=== PATIENT | female | born 1995 | race Two or more races ===

== ENCOUNTER 2023-07-26 15:41 | Emergency (ER) | payer OTHER ==
[~2023-07-26] VITALS: Ht 327.7 cm; Wt 58.1 kg
[2023-07-26 17:16] LABS: HEMATOCRIT 40.6 % (36.0-45.00); HEMOGLOBIN 14.1 g/dL (12.0-15.00); MEAN CELL VOLUME 93.1 fL (80.00-100.00); MEAN CORPUSCULAR HEMOGLOBIN 32.3 pg (27.00-32.0); MEAN CORPUSCULAR HGB CONC 34.7 g/dl (32.0-36.0); PLATELET COUNT 238 K/uL (150-450); RED BLOOD COUNT 4.36 M/uL (4.00-6.00); RED CELL DISTRIBUTION WIDTH 12.6 % (11.5-14.5)
[2023-07-26 17:17] LABS: URINE APPEARANCE Cloudy; URINE BILIRRUBIN Negative (NEGATIVE); URINE BLOOD NHT; URINE COLOR Yellow; URINE GLUCOSE Negative (NEGATIVE); URINE LEUKOCYTE Large; URINE NITRATE Negative; URINE PROTEIN Trace (NEGATIVE)
[2023-07-26 17:19] LABS: URINE EPITHELIAL CELLS 1.7 uL (0.0-38.8); URINE RBC 6.6 uL (0.0-20.8)
[2023-07-26 17:47] LABS: ALBUMIN 3.8 gm/dL (3.4-5.0); ALKALINE PHOSPHATASE 63 U/L (50-136); ALT/SGPT 21 U/L (12-78); AMYLASE 49 U/L (25-115); ANION GAP 9 (10.0-20.0); AST/SGOT 14 U/L (15-37); BILIRUBIN TOTAL 0.48 mg/dL (0.3-1.2); BLOOD UREA NITROGEN 11 mg/dL (7-18); BUN CREA RATIO 13 (7.0-25.0); CALCIUM 9.6 mg/dL (8.5-10.1); CARBON DIOXIDE 30 mEq/L (21-32); CHLORIDE 103 mmol/L (98-107); CREATININE SERUM 0.85 mg/dL (0.55-1.02); GFR 79.64; GLOBULINA 3.8 G/DL (2.4-3.5); GLUCOSE FASTING 104 mg/dL (65-100); LIPASE 25 U/L (13-75); OSMOLALITY SERUM 275 MOSM/KG (275-295); POTASSIUM 3.64 mEq/L (3.5-5.1); SODIUM 138 mmol/L (136-145); TOTAL PROTEIN 7.6 gm/dL (6.4-8.2)
[2023-07-26 17:51] LABS: HCG QUANTITATIVE < 1 mUI/mL (1-3)
== END 2023-07-26 19:45 | disposition home or self-care (01) ==
LOC: ER 15:42
PROVIDERS: General Practice
DX: N30.80 Other cystitis without hematuria (principal)